=== PATIENT | female | born 1990 | race Caucasian/White ===

== ENCOUNTER 2019-01-30 23:26 | Emergency (ER) | payer OTHER ==
[2019-01-30] MEDS ORDERED: METOCLOPRAMIDE 10 MG/2 ML VIAL IVP ONE (23:49)
[2019-01-30] MEDS ORDERED: DEXAMETHASONE 4 MG/ML VIAL IVP ONE (23:50)
[2019-01-30] MEDS ORDERED: NS 1,000 ML IV ONE (23:57)
[2019-01-31] MEDS ORDERED: KETOROLAC 30 MG/1 ML SDV IVP ONE (00:34)
== END 2019-01-31 01:23 | disposition home or self-care (01) ==
DX: G43.909 Migraine, unspecified, not intractable, without status migrainosus (principal); E86.9 Volume depletion, unspecified